=== PATIENT | female | born 1955 | race Caucasian/White ===

== ENCOUNTER 2017-12-27 08:17 | Observation (INO) | payer BC ==
[~2017-12-27] VITALS: Ht 170.2 cm; Wt 87.6 kg
--- NOTE | ~2017-12-27 | EC ---
PATIENT:JAMES PINEDA DATE OF SERVICE: 12/27/17 SEX: F MEDICAL RECORD: [id number] DATE OF : 55 LOCATION:D.M2 D.211 AGE OF PATIENT: 62 ADMISSION DATE: 12/27/17 REFERRING PHYSICIAN: INTERPRETING PHYSICIAN: PEDRO BANKS MD ECHOCARDIOGRAM REPORT ECHO CHARGES 4 ECHO COMPLETE CLINICAL DIAGNOSIS: CHEST PAIN ECHOCARDIOGRAPHIC MEASUREMENTS (adult normal given) AC root (d.<3.7cm) 3.3 cm LV Septum d (<1.2 cm> 2.3 cm Valve Excursion 1.5 cm LV Septum (systole) 2.4 cm Left Atria (s.<4.0cm> 3.7 cm LVPW d(<1.2cm) 2.0 cm RV (d.<2.3cm) 3.7 cm LVPW (sytole) 2.2 cm LV diastole(<5.6CM) 3.6 cm MV E-F(>70mm/sec) cm LV systole 1.8 cm LVOT Diameter 1.8 cm MV exc.(>10mm) 1.7 cm Est.ejection fraction (50-75%) % Pericardial Effusion N DOPPLER: LVIT cm/sec A 74.0 cm/sec E 68.0 cm/sec LA cm/sec RVSP 17 mmHg LVOT 110 cm/sec AOP1/2T m/s Asc. Ao 123 cm/sec RVOT 82 cm/sec RA cm/sec PA 102 cm/sec AV Gradient Peak 6.07 mmHg AV Mean 2.85 mmHg AV Area 2.4 cm MV Gradient Peak 2.75 mmHg MV Mean 0.86 mmHg MV Area cm COMMENTS: Manager Placement: Faby HDZ Toll Line Mechanic: Yolanda Banks TAPE# PACS DATE OF SERVICE: 12/28/2017 PROCEDURE: Transthoracic echocardiogram. FINDINGS: 1. Left ventricle is normal size, normal function with evidence of moderate concentric left ventricular hypertrophy. Inflow characteristics are consistent with diastolic dysfunction. 2. The left atrium is normal size, normal function. 3. The aortic valve is normal. ECHOCARDIOGRAM REPORT [id number] JAMES PINEDA 4. The mitral valve is normal with mild mitral regurgitation. 5. The tricuspid valve is normal. 6. The right atrium is mildly dilated. 7. The right ventricle is normal size, normal function. 8. The pericardium is normal. CONCLUSIONS: The patient has evidence of hypertensive heart disease, otherwise normal echocardiogram. TRANSINT:[id number] Voice Confirmation ID: [id number] DOCUMENT ID: [id number] PEDRO BANKS MD at 1001 CC: [id number] DICTATION DATE: 12/29/17 0837 RADIOLOGIC TECHNOLOGY INSTRUCTOR: 12/29/17 1057 DIS IN 12/28/17 [place] [id number] [place] [id number]
[2017-12-27 08:44] LABS: BASOPHILS 0.6 % (0-2); EOSINOPHILS 4.5 % (0-7); HEMATOCRIT 45.9 % (36.0-48.0); IMMATURE GRANULOCYTES 0.5 % (0-5); LYMPHOCYTES 30.3 % (15-50); MCH 30.8 pg (26.0-34.0); MCHC 34.9 g/dL (31.0-37.0); MCV 88.4 fL (80.0-100.0); MEAN PLATELET VOLUME 8.9 fL (7.4-10.4); MONOCYTES 9.2 % (2-11); NEUTROPHILS 54.9 % (40-80); RBC 5.19 10x6/uL (4.00-5.40); RDW 12.1 % (11.5-14.5); WBC 6.2 10x3/uL (4.8-10.8)
[2017-12-27 09:00] LABS: ALBUMIN 3.6 g/dL (3.4-5.0); ALKALINE PHOSPHATASE 75 U/L (46-116); ALT (SGPT) 39 U/L (10-68); BILIRUBIN - TOTAL 0.43 mg/dL (0.2-1.3); CALC OSMOLALITY 270 mosm/kg (275-300); CARBON DIOXIDE 25.8 mmol/L (21.0-32.0); CHLORIDE - SERUM 101 mmol/L (98-107); CREATININE - SERUM 0.9 mg/dL (0.6-1.3); GLUCOSE 105 mg/dL (74-106); POTASSIUM - SERUM 3.8 mmol/L (3.5-5.1); PROTEIN - SERUM 7.2 g/dL (6.4-8.2); SODIUM 135 mmol/L (136-145); UREA NITROGEN 14 mg/dL (7-18); eGFR NON AFRICAN AMERICAN 67 mL/min (90-120)
[2017-12-27 09:02] LABS: PLATELET COUNT 243 10x3/uL (130-400)
[2017-12-27 09:03] LABS: CREATINE KINASE 103 UL (21-215)
[2017-12-27 09:12] LABS: TROPONIN-I < 0.017 ng/mL (0.000-0.060)
[2017-12-27 18:41] LABS: CHOL - HDL RATIO 5.2 ratio (2.3-4.1)
[2017-12-27 19:00] VITALS: BP 140/53
[2017-12-27 19:29] LABS: CKMB 1.7 U/L (0.0-3.6); CREATINE KINASE 77 UL (21-215); TROPONIN-I < 0.017 ng/mL (0.000-0.060)
[2017-12-27 19:34] VITALS: Ht 170.2 cm; Wt 87.6 kg
[2017-12-27 20:19] VITALS: BP 140/53
[2017-12-28] VITALS: BP 122/47
[2017-12-28 02:22] LABS: CKMB 1.5 U/L (0.0-3.6); CREATINE KINASE 65 UL (21-215)
[2017-12-28 02:23] LABS: TROPONIN-I < 0.017 ng/mL (0.000-0.060)
[2017-12-28 04:00] VITALS: BP 123/68
[2017-12-28 08:02] VITALS: BP 143/59
[2017-12-28 08:12] LABS: CKMB 1.2 U/L (0.0-3.6); CREATINE KINASE 52 UL (21-215); TROPONIN-I < 0.017 ng/mL (0.000-0.060)
[2017-12-28 11:34] VITALS: BP 163/76
[2017-12-28 16:13] VITALS: BP 131/106
[2017-12-28] MEDS ORDERED: PLAVIX75 MG PO (16:17)
[2017-12-28] MEDS ORDERED: LIPITOR20 MG PO (16:17)
[2017-12-28] MEDS ORDERED: LOPRESSOR25 MG PO (16:17)
[2017-12-28] MEDS ORDERED: ALTACE5 MG PO (16:20)
== END 2017-12-28 17:28 | disposition home or self-care (01) ==
LOC: D.ER 08:17 → D.M2 18:13 → OBSVTIME 18:14 → D.M2 12-28 17:28
PROVIDERS: Emergency Medicine; Internal Medicine Cardiovascular Disease
DX: G45.9 Transient cerebral ischemic attack, unspecified (principal); I16.0 Hypertensive urgency; I25.10 Atherosclerotic heart disease of native coronary artery without angina pectoris; Z95.5 Presence of coronary angioplasty implant and graft; E78.5 Hyperlipidemia, unspecified; F17.203 Nicotine dependence unspecified, with withdrawal

== ENCOUNTER 2019-07-25 10:42 | Outpatient (CLI) | payer BC ==
[2017-12-27 19:34] VITALS: BMI 29.8
[~2019-07-25 10:42] MED LIST: ALTACE5 MG PO; LIPITOR20 MG PO; LOPRESSOR25 MG PO; PLAVIX75 MG PO
== END 2019-07-25 23:59 | disposition home or self-care (01) ==
LOC: D.MAMMO 10:42
PROVIDERS: ATTEND Clinical Nurse Specialist Family Health
DX: Z12.31 Encounter for screening mammogram for malignant neoplasm of breast (principal)

== ENCOUNTER 2019-08-31 09:00 | Outpatient (CLI) | payer BC ==
[2017-12-27 19:34] VITALS: BMI 29.8
== END 2019-08-31 10:00 | disposition home or self-care (01) ==
LOC: D.MAMMO 09:00
PROVIDERS: ATTEND Clinical Nurse Specialist Family Health
DX: R92.8 Other abnormal and inconclusive findings on diagnostic imaging of breast (principal)

== ENCOUNTER 2020-01-23 05:35 | Observation (INO) | payer BC ==
[~2020-01-23] VITALS: Ht 172.7 cm; Wt 85.9 kg
--- NOTE | ~2020-01-23 | HEMODYNAMI ---
PATIENT:JAMES PIENDA MEDICAL RECORD: [id number] : 55 LOCATION:[facility] DMarlo2120 ADMISSION DATE: 01/23/20 Generatedon:01/23/202015:52 Patient name: JAMES PINEDA Patient #: [id number] SSN: [id number] : 1955 Date of study: 01/23/2020 Page: Of Hemodynamic Procedure Report Patient Data Patient Demographics First Name: JAMES Gender: Female Last Name: MIRIAM : 1955 Middle Initial: KRYSTLE Age: 64 year(s) Patient #: [id number] Race: SSN: [id number] Additional ID: [id number] Contact details Address: [address] [place] [address] State: [place] City: [place] Zip code: [address] Past Medical History Allergies: No known allergies Admission Admission Data Admission Date: 01/23/2020 Admission Time: 7:03 Arrival Date: 01/23/2020 Arrival Time: 0:00 Room #: D.2120 Insurance Payor: Private health insurance [facility] #: [id number] Height (in.): 67.72 BSA: 1.98 (m2) Height (cm.): 172 BMI: 28.73 (kg/m2) Weight (lbs.): 187.39 Weight (kg.): 85 Lab Results Lab Result Date: 01/23/2020 Lab Result Time: 0:00 Biochemistry Name Units Result Min Max BUN mg/dl 20 --(----)*- 7 18 Creatinine mg/dl 0.8 --(-*--)-- 0.6 1.3 eGFR ml/min 76.29128 *-(----)-- 90 120 NONAFRICAN CBC Name Units Result Min Max Hemoglobin g/dl 15.4 --(-*--)-- 13.5 17.5 Procedure Procedure Types Cath Procedure Diagnostic Procedure LHC LHC w/Coronaries Sedation Charges Moderate Sedation up to 15 minutes Procedure Description Procedure Date Procedure Date: 01/23/2020 Procedure Start Time: 15:33 Procedure End Time: 15:46 Procedure Staff Name Function Gomez Cronin MD Performing Physician Yara Whyte RT Monitor Ellen Cyr RN Nurse Alize Dai RT Scrub Procedure Data Cath Procedure Fluoroscopy Diagnostic fluoroscopy Total fluoroscopy Time: 1.4 time: 1.4 min min Diagnostic fluoroscopy Total fluoroscopy dose: 299 dose: 299 mGy mGy Contrast Material Contrast Material Type Amount (ml) Isovue 300 59 Entry Location Entry Primary Successful Side Size Upsize Upsize Entry Closure Succes sful Closure Location (Fr) 1 (Fr) 2 (Fr) Remarks Device Remarks Femoral Right 5 Fr Exoseal artery Estimated blood loss: 10 ml Diagnostic catheters Device Type Used For End Catheter Placement MULTIPACK JL 4.0 5Fr Procedure catheter MULTIPACK 3DRC 5Fr Procedure catheter MULTIPACK Pigtail 5 Fr Ventriculography catheter Procedure Complications No complications Procedure Medications Medication Administration Route Dosage Oxygen etCO2 Nasal cannula 2 l/min Lidocaine 2% added to field 20 Heparin Flush Bag added to field 2 bags (1000units/500ml NS) 0.9% NaCl I.V. 100 ml/hr Versed I.V. 2 mg Fentanyl I.V. 100 mcg Versed I.V. 2 mg Fentanyl I.V. 100 mcg Fentanyl I.V. 25 mcg Versed I.V. 1 mg Hemodynamics Rest BSA: 1.98 (m2) HGB: 15.4 (g/dl) O2 Consumption: Estimated: 182.52 (ml/min) O2 Co nsumption indexed: Estimated:92.18 (ml/min/m) Heart Rate: 66 (bpm) Pressure Samples Time Site Value (mmHg) Purpose Heart Use Rate(bpm) 15:42 LV 118/-2,13 Snapshot 66 15:43 AO 111/52(76) Pullback 68 15:43 LV 105/2,14 Pullback 68 Gradients Valve Time Site 1 Site 2 Mean SEP/DFP Peak To Heart Use (mmHg) (sec/min) Peak Rate (mmHg) (bpm) Aortic 15:43 LV AO 0 5 0 68 105/2,14 111/52(76) Calculations Valve P-P Mean Valve Index Valve Source Name Gradient Area Flow (cm2) Aortic 0 0 0 0 Snapshots Pre Cath Intra NCS Post Cath Vital Signs Time Heart Resp SPO2 etCO2 NIBP (mmHg) Rhythm Pain Sedation Rate (ipm) (%) (mmHg) Status Level (bpm) 14:54:28 56 13 94 41.2 128/60(90) NSR 0 (11) 10(A) , No pain 14:58:41 58 13 94 33 136/60(97) NSR 0 (11) 10(A) , No pain 15:02:55 56 14 95 40.4 137/64(98) NSR 0 (11) 10(A) , No pain 15:07:12 59 13 92 23.2 121/62(105) NSR 0 (11) 10(A) , No pain 15:11:23 52 14 94 38.2 117/53(71) NSR 0 (11) 10(A) , No pain 15:15:29 57 15 94 32.9 126/67(91) NSR 0 (11) 10(A) , No pain 15:19:37 54 13 95 37.4 137/72(94) NSR 0 (11) 10(A) , No pain 15:23:53 54 15 95 37.4 129/64(97) NSR 0 (11) 10(A) , No pain 15:28:03 54 16 96 38.2 128/70(101) NSR 0 (11) 10(A) , No pain 15:32:17 55 19 96 36.7 122/61(77) NSR 0 (11) 10(A) , No pain 15:36:31 56 17 94 20.2 106/51(79) NSR 0 (11) 10(A) , No pain 15:40:35 67 14 94 14.9 112/62(95) NSR 0 (11) 9(A) , No pain 15:44:43 68 16 95 35.9 117/62(80) NSR 0 (11) 10(A) , No pain Medications Time Medication Route Dose Verified Delivered Reason Notes Eff ectiveness by by 14:53:26 Oxygen etCO2 2 Gomez Buffie used for Nasal l/min Mehrdad Cyr community health educator cannula 14:53:37 Lidocaine 2% added 20ml Gomez Gomez for local to vial Mehrdad Cronin MD anesthetic field 14:53:43 Heparin Flush added 2 Gomez Gomez used for Bag to bags Mehrdad Cronin MD procedure (1000units/500ml field NS) 14:53:53 0.9% NaCl I.V. 100 Gomez Buffie Per ml/hr Mehrdad Cyr RN physician 15:33:50 Versed I.V. 2 mg Gomez Buffie for Mehrdad Cyr RN sedation 15:33:56 Fentanyl I.V. 100 Gomez Buffie for mcg Mehrdad Cyr RN sedation 15:38:30 Versed I.V. 2 mg Gomez Buffie for Mehrdad Cyr RN sedation 15:38:41 Fentanyl I.V. 100 Gomez Buffie for mcg Mehrdad Cyr RN sedation 15:41:38 Fentanyl I.V. 25 Gomez Buffie for mcg Mehrdad Cyr RN sedation 15:41:41 Versed I.V. 1 mg Gomez Buffie for Mehrdad Cyr RN sedation Procedure Log Time Note 11:59:13 Patient allergic to No known allergies 14:24:49 Patient Height : 67.72 inches 14:24:56 Patient Weight : 187.39 lbs 14:25:09 Insurance Payor : Private health insurance 14:25:28 Arrival Date: 01/23/2020 12:00:00 AM 14:32:54 Procedure Status Urgent Heart Cath (IP). 14:32:57 Ellen Cyr RN sent for patient. Start room use. 14:32:58 Time tracking: Regular hours (M-F 7:00 - 5:00) 14:33:03 Plan of Care:Hemodynamics will remain stable., Cardiac rhythm will remain stable., Comfort level will be maintained., Respiratory function will remain adequate., Patient/ family verbilizes understanding of procedure., Procedure tolerated without complication., Recovers from procedure without complications.. 14:33:35 Patient received from Med II to CCL 2 Alert and oriented. Tansferred to table in Supine position. 14:33:36 Warm blankets applied, and rosemary hugger turned on for patient comfort. 14:33:37 Correct patient and procedure confirmed by team. 14:33:37 ECG and BP/O2 sat monitors applied to patient. 14:34:30 H&P Date Dictated: 01/23/2020 Within 30 days and on chart., H&P Addendum completed by physician on day of procedure. (MUST COMPLETE FOR ALL OUTPATIENTS). 14:34:31 Pre-procedure instructions explained to patient. 14:34:33 Family unavailable. 14:34:35 Patient NPO since Midnight. 14:35:09 Is the patient allergic to Iodine/contrast media? No. 14:35:10 Was the patient premedicated? Yes 14:35:39 Is patient on blood thinner?No 14:48:08 Patient diabetic? No. 14:48:12 Snore? No 14:48:14 Sleep apnea? No 14:48:20 Dentures? Yes tight 14:53:15 Vital chart was started 14:53:26 Oxygen 2 l/min etCO2 Nasal cannula was administered by Ellen Cyr RN; used for procedure; Verbal order read back and verified. 14:53:37 Lidocaine 2% 20ml vial added to field was administered by Gomez Cronin MD; for local anesthetic; Verbal order read back and verified. 14:53:43 Heparin Flush Bag (1000units/500ml NS) 2 bags added to field was administered by Gomez Cronin MD; used for procedure; Verbal order read back and verified. 14:53:53 0.9% NaCl 100 ml/hr I.V. was administered by Ellen Cyr RN; Per physician; Verbal order read back and verified. 14:58:20 Patient pain scale 0/10 ?. 14:58:26 IV patent on arrival in right hand with 0.9% NaCl at [facility]. 14:58:35 Lab results completed and on chart. 14:58:50 Right groin area was prepped with chlora-prep and draped in sterile fashion 14:58:52 Alarms reviewed by R. N. 14:58:52 Sharps counted by scrub and verified by R.N. 14:59:05 Right groin site verified by team. 14:59:09 Fire Safety Assessment: A--An alcohol-based skin anteseptic being used preoperatively., C--Open oxygen or nitrous oxide is being used., D--An ESU, laser, or fiber-optic light is being used. 14:59:14 Physical assessment completed. ASA score P 2 - A patient with mild systemic disease as per Gomez Cronin MD. 14:59:21 2) 60-89 Mildly reduced kidney function, and other findings (as for stage 1) point to kidney disease. 14:59:23 Maximum allowable contrast dose (3.7 X eGFR X 0.75)211 ml. 14:59:28 Sedation plan: IV Moderate Sedation Medication:Versed, Fentanyl 14:59:37 Use device set Femoral Dx 14:59:38 ACIST Syringe (26944) opened to sterile field. 14:59:39 Bag Decanter (2002S) opened to sterile field. 14:59:39 Medline Cath Pack ([id number]) opened to sterile field. 14:59:40 ACIST Hand Control (20494) opened to sterile field. 14:59:41 ACIST Manifold (15347) opened to sterile field. 14:59:42 DIAGNOSTIC Multipack 5Fr catheter set (AP4385) opened to sterile field. 14:59:43 Tegaderm 4 x 4 (1626W) opened to sterile field. 14:59:46 SHEATH 5FR Oldfield (QKB883) opened to sterile field. 14:59:47 EMERALD Guide Wire (381-511) opened to sterile field. 15:06:07 Zero performed for pressure channel P1 15:31:47 Physician arrived 15:31:47 --------ALL STOP TIME OUT------ 15:31:48 Final Timeout: patient, procedure, and site verified with staff and physician. All members of the team are in agreement. 15:33:32 Procedure started. 15:33:32 Full Disclosure recording started 15:33:35 Local anesthetic to right femoral artery with Lidocaine 2% by Gomez Cronin MD.INITIAL ACCESS ONLY 15:33:50 Versed 2 mg I.V. was administered by Ellen Cyr RN; for sedation; Verbal order read back and verified. 15:33:56 Fentanyl 100 mcg I.V. was administered by Ellen Cyr RN; for sedation; Verbal order read back and verified. 15:34:18 A 5 Fr sheath was inserted into the Right Femoral artery 15:37:52 A MULTIPACK JL 4.0 5Fr catheter was advanced over the wire and used for Procedure. 15:37:55 LCA angiography performed. 15:38:30 Versed 2 mg I.V. was administered by Ellen Cyr RN; for sedation; Verbal order read back and verified. 15:38:41 Fentanyl 100 mcg I.V. was administered by Ellen Cyr RN; for sedation; Verbal order read back and verified. 15:39:36 Catheter removed. 15:39:58 A MULTIPACK 3DRC 5Fr catheter was advanced over the wire and used for Procedure. 15:40:30 RCA angiography performed. 15:41:06 Catheter removed. 15:41:13 A MULTIPACK Pigtail 5 Fr catheter was advanced over the wire and used for Ventriculography. 15:41:38 Fentanyl 25 mcg I.V. was administered by Ellen Cyr RN; for sedation; Verbal order read back and verified. 15:41:41 Versed 1 mg I.V. was administered by Ellen Cyr RN; for sedation; Verbal order read back and verified. 15:42:48 EF : 60 % 15:42:57 EXOSEAL 5Fr (EX500) opened to sterile field. 15:43:02 Catheter exchanged over wire. 15:43:27 Sheath removed intact; hemostasis achieved with Exoseal to the Right Femoral artery. 15:43:30 Procedure ended.(Physican Out) 15:44:00 Fluoroscopy time 01.40 minutes. 15:44:05 Fluoroscopy dose: 299 mGy 15:44:05 Flurop Dose total: 299 15:44:10 Dose Area Product 99114 mGy/cm. 15:44:14 Contrast amount:Isovue 300 59ml. 15:44:17 Maximum allowable dose exceeded? No. 15:44:18 Sharps counted by scrub and verified by R.N. 15:44:21 Insertion/operative site no bleeding no hematoma. 15:44:26 Post right femoral artery:stable 15:44:34 Post-procedure physical assessment completed. ASA score P 2 - A patient with mild systemic disease as per Gomez Cronin MD. 15:44:39 Post procedure rhythm: unchanged. 15:44:41 Estimated blood loss: 10 ml 15:44:44 Post procedure instruction explained to patient.Patient verbalizes understanding. 15:44:59 Procedure type changed to Cath procedure, Diagnostic procedure, LHC, [facility] w/Coronaries, Sedation Charges, Moderate Sedation up to 15 minutes 15:45:02 Procedure and supply charges have been captured, reviewed, submitted and are correct. 15:45:34 Procedure Complication : No complications 15:45:37 Vital chart was stopped 15:45:41 [facility] Findings: MVD- will discuss options w/ pt 15:46:13 Report given to Med II. 15:46:18 Patient transfered to [facility] with Bed. 15:46:20 Procedure ended. 15:46:20 Full Disclosure recording stopped 15:46:25 End room use (Document Last) 15:46:39 End room use (Document Last) 15:47:15 End room use (Document Last) Device Usage Item Name Manufacture Quantity Catalog Hospital Part Current Minimal L ot# / Number Charge Number Stock Stock Serial# Code ACIST Acist 1 55281 871683 858994 309624 20 Syringe Medical (67232) Systems Inc Bag Microtek 1 110358 25209 220960 5 Decanter Medical Inc. () Medline Medline 1 [id number] 628996 05635 048696 5 Cath Pack ([id number]) ACIST Hand Acist 1 52635 655702 014511 141742 5 Control Medical (60600) Systems Inc ACIST Acist 1 45333 000651 082381 568597 5 Manifold Medical (16113) Systems Inc DIAGNOSTIC Cardinal 1 [id number] 064398 32951 999174 30 Multipack Health 5Fr catheter set (YS3681) Tegaderm 4 3M 1 1626W 873374 854136 566684 5 x 4 (1626W) SHEATH 5FR Terumo 1 VSY831 773653 039052 401009 5 Oldfield (KHW840) EMERALD Cardinal 1 502-002 695653 816201 779965 5 Guide Wire [facility] (502455) MULTIPACK Cardinal 1 206231 5 JL 4.0 5Fr Health catheter MULTIPACK Cardinal 1 280965 5 3DRC 5Fr Health catheter MULTIPACK Cardinal 1 656718 5 Pigtail 5 Health Fr catheter EXOSEAL 5Fr Cardinal 1 EX500 089871 648639 465042 10 (EX500) Health Signature Audit [place] Stage Time Signature Unsigned Intra-Procedure 01/23/2020 Yara Whyte 3:46:39 PM RT(R) Intra-Procedure 01/23/2020 Ellen Cyr RN 3:47:15 PM Intra-Procedure 01/23/2020 Gomez Cronin MD 3:52:50 PM Signatures Performing Physician : Signature : Gomez Cronin MD Date : Time : Monitor : Yara Pato Signature : RT Date : Time : Nurse : Buffie Cyr RN Signature : Date : Time : [address] [place] [address]
[2020-01-23 06:04] LABS: BASOPHILS 0.5 % (0-2); EOSINOPHILS 3.6 % (0-7); HEMATOCRIT 45.9 % (36.0-48.0); HEMOGLOBIN 15.4 g/dL (12-16); IMMATURE GRANULOCYTES 0.5 % (0-5); MCH 30.4 pg (26.0-34.0); MCHC 33.6 g/dL (31.0-37.0); MCV 90.7 fL (80.0-100.0); MEAN PLATELET VOLUME 8.9 fL (7.4-10.4); MONOCYTES 11.2 % (2-11); NEUTROPHILS 51.2 % (40-80); PLATELET COUNT 245 10x3/uL (130-400); RBC 5.06 10x6/uL (4.00-5.40); RDW 12.2 % (11.5-14.5); WBC 6.6 10x3/uL (4.8-10.8)
[2020-01-23 06:18] LABS: CALC OSMOLALITY 277 mosm/kg (275-300); CALCIUM 8.9 mg/dL (8.5-10.1); CHLORIDE - SERUM 106 mmol/L (98-107); CREATININE - SERUM 0.8 mg/dL (0.6-1.3); GLUCOSE 87 mg/dL (74-106); POTASSIUM - SERUM 4.1 mmol/L (3.5-5.1); SODIUM 138 mmol/L (136-145); UREA NITROGEN 20 mg/dL (7-18); eGFR NON AFRICAN AMERICAN 76 mL/min (90-120)
[2020-01-23 06:31] LABS: APTT 34.8 SECONDS (22.8-39.4); INR 0.93 (0.85-1.17); PROTIME 12.4 SECONDS (11.6-15.0)
[2020-01-23 06:34] VITALS: BP 119/65
[2020-01-23 06:36] LABS: ALBUMIN 3.3 g/dL (3.4-5.0); ALKALINE PHOSPHATASE 77 U/L (30-120); ALT (SGPT) 29 U/L (10-68); BILIRUBIN - TOTAL 0.31 mg/dL (0.2-1.3); CKMB 1.3 U/L (0.0-3.6); CREATINE KINASE 71 UL (21-215); PRO BNP 44 pg/mL (0-125); PROTEIN - SERUM 6.8 g/dL (6.4-8.2)
[2020-01-23 06:39] LABS: TROPONIN-I < 0.017 ng/mL (0.000-0.060)
--- NOTE | 2020-01-23 06:39 | NUR ---
PT STATES THAT PAIN TO LEFT ARM HAS IMPROVED AND DOES NOT GO ALL THE WAY DOWN AT THIS TIME
[2020-01-23 07:00] VITALS: BP 136/59
[2020-01-23 08:13] LABS: CHOL - HDL RATIO 5.6 ratio (2.3-4.1); LDL-HDL RATIO 3.4 ratio (1.5-3.5)
[2020-01-23 08:47] VITALS: BP 154/48; Ht 172.7 cm; Wt 85.9 kg
--- NOTE | 2020-01-23 09:56 | NUR ---
TRANSFERED FROM ER BY W/C. CONSENTS SIGNED FOR [facility]. WILL CONT. PLAN OF CARE.
[2020-01-23 10:26] VITALS: BP 142/55
--- NOTE | 2020-01-23 11:38 | NUR ---
PATIENT PREOPT AT THIS TIME. NO DISTRESS. CALL LIGHT WITHIN REACH.
[2020-01-23 14:05] LABS: CKMB 0.9 U/L (0.0-3.6); CREATINE KINASE 60 UL (21-215); TROPONIN-I < 0.017 ng/mL (0.000-0.060)
--- NOTE | 2020-01-23 14:34 | NUR ---
PRE-OPS GIVEN. TO MARKETING DATABASE COORDINATOR BY BED.
--- NOTE | 2020-01-23 16:13 | NUR ---
BACK FROM [facility]. VS WNL. RIGHT GROIN STABLE WITHOUT BLEEDING OR HEMATOMA NOTED. WILL MONITOR.
[2020-01-23 16:14] VITALS: BP 115/52
--- NOTE | 2020-01-23 17:58 | NUR ---
BED RST UP. GROIN STABLE.
--- NOTE | 2020-01-23 18:20 | NUR ---
IV AND TELEMETRY DCD. DC PLANS GIVEN. UNDERSTANDING VOICED.
== END 2020-01-23 18:45 | disposition home or self-care (01) ==
LOC: D.ER 05:35 → D.M2 07:03 → OBSVTIME 07:03 → D.M2 07:03
PROVIDERS: Family Medicine; Internal Medicine Cardiovascular Disease; ADMIT Family Medicine; ATTEND Family Medicine
DX: I25.110 Atherosclerotic heart disease of native coronary artery with unstable angina pectoris (principal); I10 Essential (primary) hypertension; E78.5 Hyperlipidemia, unspecified; F17.203 Nicotine dependence unspecified, with withdrawal